=== PATIENT | female | born 1985 | race Caucasian/White ===

== ENCOUNTER 2024-09-07 18:02 | Emergency (ER) | payer MEDICAID, SELFPAY ==
[2024-09-07 18:26] VITALS: BP 170/110; PULSE 94; RESP 18; TEMP 36.6; O2SAT 98; BMI 54.1
--- NOTE | 2024-09-07 18:30 | EKG_ITS ---
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
--- NOTE | 2024-09-07 18:33 | PD.EDRME ---
Rapid Medical Screening Exam RME Arrival date/time: 09/07/24 18:02 39 year old female present to ED for c/o of headache for 1 day I have greeted and performed a focused initial assessment of this patient. A comprehensive ED assessment and evaluation of the patient, analysis of all test results, and completion of the medical decision making process will be conducted by additional ED providers. Chief Complaint: Headache Time Seen by Provider: 09/07/24 18:08 Vital signs: Vital Signs Temperature 97.9 F 09/07/24 18:26 Pulse Rate 94 09/07/24 18:26 Respiratory Rate 18 09/07/24 18:26 Blood Pressure 170/110 H 09/07/24 18:26 Pulse Oximetry (%) 98 09/07/24 18:26 Oxygen Delivery Method Room Air 09/07/24 18:26
[2024-09-07] MEDS: DiphenhydrAMINE ELIX 25 MG/10 ML UDC 12.5 MG PO (18:40)
[2024-09-07] MEDS: SUMAtriptan INJ 6 MG/0.5 ML VIAL SC (18:40)
[2024-09-07 19:27] LABS: HCG,Qualitative Serum Negative
[2024-09-07 19:37] LABS: Basophils # (Auto) 0.1 Thou/mm3 (0.0-0.2); Basophils % (Auto) 1 % (0-2.5); Eosinophils # (Auto) 0.2 Thou/mm3 (0.0-0.5); Eosinophils % (Auto) 2 % (0-10); Hematocrit 39.1 % (36.0-46.0); Hemoglobin 11.9 g/dL (12.0-16.0); Immature Granulocytes % (Auto) 0 % (0-0); Immature Granulocytes Auto 0.04 Thou/mm3 (0.00-0.00); Lymphocytes # (Auto) 3.9 Thou/mm3 (1.0-4.8); Lymphocytes % (Auto) 37 % (10-50); Mean Corpuscular HGB Conc 30.4 g/dl (31.0-37.0); Mean Corpuscular Hemoglobin 24.1 pg (25.0-35.0); Mean Corpuscular Volume 79 fL (80-100); Monocytes # (Auto) 0.7 Thou/mm3 (0.0-0.8); Monocytes % (Auto) 6 % (0-12); Neutrophils # (Auto) 5.8 Thou/mm3 (1.8-7.7); Neutrophils % (Auto) 55 % (37-80); Nucleated Red Blood Cell % 0 /100 WBC (0); Platelet Count 245 Thou/mm3 (140-440); RDW Standard Deviation 42.1 fL (36.4-46.3); Red Blood Count 4.93 Miln/mm3 (4.00-5.20); White Blood Count 10.7 Thou/mm3 (3.6-11.0)
[2024-09-07 19:42] LABS: Alanine Aminotransferase 12 U/L (10-49); Albumin, Serum 4.2 gm/dL (3.5-5.0); Albumin/Globulin Ratio 1.3 (1.2-2.2); Alkaline Phosphatase 118 U/L (46-116); Anion Gap 5 (7-16); Aspartate Amino Transferase 10 U/L (0-34); BUN/Creatinine Ratio 12 Ratio (12-20); Bilirubin,Total 0.5 mg/dL (0.3-1.2); Blood Urea Nitrogen 12 mg/dL (9-23); Calcium 9.5 mg/dL (8.3-10.6); Calcium (Corrected) 9.5 mg/dL (8.5-10.1); Carbon Dioxide 28.4 mMol/L (20.0-31.0); Chloride 101 mMol/L (98-107); Estimated Creatinine Clearance 121.6 mL/min (>60); Globulin 3.2 gm/dL (2.3-3.5); Glucose 164 mg/dL (74-106); Osmolality,Calculated 271 (275-295); Potassium 4.3 mMol/L (3.4-5.1); Sodium 134 mMol/L (136-145); Total Protein 7.4 gm/dL (5.7-8.2); Troponin I < 0.020 ng/mL (0.0-0.045); eGFR > 60 See Note
--- NOTE | 2024-09-07 19:49 | PC.NURSE ---
SEEN LEAVING ER, PT GOT INTO A CAR. NO ANSWER AT ER LOBBY OR OUTSIDE ER AT THIS TIME.
== END 2024-09-07 19:50 | disposition left against medical advice (07) ==
PROVIDERS: Physician Assistant; Emergency Provider Emergency Medicine; PCP Nurse Practitioner Family
DX: R51.9 Headache, unspecified (principal); Z53.21 Procedure and treatment not carried out due to patient leaving prior to being seen by health care provider
CPT/HCPCS: 36415; 80053; 84484; 84703; 85025; 93005; 96372; 99281; J3030; A9270

== ENCOUNTER 2025-05-05 07:47 | Emergency (ER) | payer MEDICAID, SELFPAY ==
[2025-05-05 07:47] VITALS: BMI 43.8
[2025-05-05 07:58] VITALS: BP 130/104; PULSE 108; RESP 19; TEMP 36.4; O2SAT 98
--- NOTE | 2025-05-05 08:10 | EDNOTE_ITS ---
<Statement entered by Kandis Ley MD - 05/05/25 17:35> As co-signing physician, I was present and available for consult prn. I concur with the plan and care as documented by the midlevel provider. ED Dental RME/HPI General Chief complaint: Dental/Oral/Throat Stated complaint: [place] tooth area pain Time Seen by Provider: 05/05/25 07:50 Source: patient Arrival date/time: 05/05/25 07:47 40-year-old female with no medical history presents to the emergency room with a chief complaint of pain and tenderness to the lower left molars x 2 days Mode of arrival: ambulatory Limitations: no limitations Related Data Previous Rx's ?Medication ?Instructions ?Recorded ranitidine HCl 300 mg tablet 300 mg PO QPM #30 tabs (Zantac) hydrochlorothiazide 12.5 mg tablet 12.5 mg PO QDAY #30 tabs 06/02/23 lisinopril 5 mg tablet 5 mg PO QDAY #30 tabs clindamycin HCl 300 mg capsule 300 mg PO TID 7 days #2 1 caps 05/05/25 hydrocodone 5 mg-acetaminophen 325 1 tab PO BID PRN pa in #6 tabs 05/05/25 mg tablet Allergies Allergy/AdvReac Type Severity Reaction Status Date / Time No Known Allergies Allergy Verified 09/07/24 18:03 Review of Systems Review of Systems Systems Reviewed: All systems reviewed, normal except as documented Constitutional Constitutional: Reports system reviewed and no additional complaints, except as documented, Denies fatigue, Denies fever(s), Denies headache(s) and Denies weakness Eyes Eyes: Reports system reviewed and no additional complaints, except as documented, Denies blurry vision and Denies change in vision ENT Ears, Nose, Mouth, and Throat: Reports system reviewed and no additional complaints, except as documented, Reports dental pain, Denies otalgia, Denies headache(s), Denies nasal congestion, Denies throat swelling and Denies vertigo Cardiovascular Cardiovascular: Reports system reviewed and no additional complaints, except as documented, Denies chest pain, Denies dyspnea and Denies dyspnea on exertion Respiratory Respiratory: Reports system reviewed and no additional complaints, except as documented, Denies chest congestion, Denies cough, Denies dyspnea, Denies dyspnea on exertion and Denies wheezing Gastrointestinal Gastrointestinal: Reports system reviewed and no additional complaints, except as documented, Denies abdominal pain, Denies cramping, Denies nausea and Denies vomiting Genitourinary Genitourinary: Reports system reviewed and no additional complaints, except as documented Musculoskeletal Musculoskeletal: Reports system reviewed and no additional complaints, except as documented and Denies back pain Integumentary/Breasts Skin/Breast: Reports system reviewed and no additional complaints, except as documented and Denies wounds Neurologic Neurologic: Reports system reviewed and no additional complaints, except as documented, Denies confusion, Denies headache(s), Denies lack of coordination, Denies vertigo and Denies weakness Psychiatric Psychiatric: Reports system reviewed and no additional complaints, except as documented, Denies anxiety, Denies confusion, Denies depression, Denies paranoia, Denies suicidal ideation and Denies tactile hallucinations Endocrine Endocrine: Reports system reviewed and no additional complaints, except as documented and Denies fatigue Hematologic/Lymphatic Hematologic/Lymphatic: Reports system reviewed and no additional complaints, except as documented and Denies lymphadenopathy Allergic/Immunologic Allergic/Immunologic: Reports system reviewed and no additional complaints, except as documented, Denies throat swelling, Denies urticaria and Denies wheezing Past Medical History Past Medical History CARDIAC: Positive Heart Murmur (LEAKING HEART VALVES); Negative Congestive Heart Failure RESPIRATORY: Negative Chronic Obstructive Pulmonary Disease (COPD) GENITOURINARY: Negative Renal Disease ENDOCRINE: Negative Diabetes Mellitus Type 1 or Diabetes Mellitus Type 2 Surgical History SURGICAL: Positive Section (x2) Social History SMOKING STATUS: Former smoker ED Exam General Limitations: Present no limitations General appearance: Present alert and in no apparent distress Head Head exam: Present atraumatic Eye Eye exam: Present normal appearance, PERRL and EOMI ENT ENT exam: Present normal exam, normal oropharynx and mucous membranes moist Expanded ENT Exam Teeth exam: Present fractured tooth # and dental tenderness # Teeth numbered: 2 1. Dental Tenderness Neck Neck exam: Present normal inspection, full ROM and trachea midline Chest Chest inspection: Present normal inspection and symmetric chest wall rise Respiratory Respiratory exam: Present normal lung sounds bilaterally Cardiovascular Cardiovascular exam: Present regular rate, normal rhythm and normal heart sounds Abdominal Exam Abdominal exam: Present soft and normal bowel sounds Extremities Exam Extremities exam: Present normal inspection and full ROM Back Exam Back exam: Present normal inspection and full ROM Neurological Exam Neurological exam: Present alert, oriented X3 and CN II-XII intact Psychiatric Psychiatric exam: Present normal affect and normal mood Skin Skin exam: Present warm, dry, intact and normal color Course Quality Measures none Orders Category Date Time Status Clindamycin Vial [Cleocin vial] Med 05/05/25 08:07 Discontinued 600 mg IM X1 ONE Ketorolac Inj [Toradol Inj] Med 05/05/25 08:07 Discontinued 60 mg IM X1 ONE Vital Signs Vital signs: Vital Signs Temperature 97.6 F 05/05/25 07:58 Pulse Rate 108 H 05/05/25 07:58 Respiratory Rate 19 05/05/25 07:58 Blood Pressure 130/104 H 05/05/25 07:58 Pulse Oximetry (%) 98 05/05/25 07:58 Oxygen Delivery Method Room Air 05/05/25 07:58 Dental / Oral MDM Narrative MDM Narrative:: 40-year-old female with no medical history presents to the emergency room with a chief complaint of pain and tenderness to the lower left molars x 2 days Patient is hemodynamically stable and in no apparent distress Physical examination shows some left lower dental pain x 2 days. The patient's dental pain is to tooth #18 and 19 on the left lower molar side. There is some dental fractures and dental tenderness with palpation. There is no evidence of any gingivitis. Pain medication and antibiotics were given to the patient Patient was discharged and educated to follow-up with primary care provider in the next 24 to 48 hours and return to the emergency room for any evidence of worsening signs or symptoms Patient data External records reviewed:: [facility] previous records Clinical information provided by:: patient Social determinants that could affect healthcare access:: none Patient has the following chronic illnesses:: No chronic illness How is presenting disease/condition affected by chronic disease/condition?: no chronic disease Evaluation data The following diagnostics were reviewed and interpreted by me:: lab results and radiology exam(s) Lab and/or radiology exams considered but not ordered:: Labs and radiology exams considered and ordered Interpretation Summary: N/A Medications / Prescriptions Medications or Prescriptions considered but not ordered:: Medication given Medication administrations:: Medication Administration History Discontinued Medications Clindamycin Phosphate (Clindamycin Phos Inj 150 Mg/Ml Vial 6 Ml) 600 mg IM X1 ONE Stop: 05/05/25 08:08 Last Admin: 05/05/25 08:13 Dose: 600 mg Documented By: MARKELL Ketorolac Tromethamine (Ketorolac Inj 60 Mg/2 Ml Vial) 60 mg IM X1 ONE Stop: 05/05/25 08:08 Last Admin: 05/05/25 08:13 Dose: 60 mg Documented By: VG Medication given Consultations Consultation(s) initiated? (list below): No Diagnosis Dental Differential Diagnosis: dental caries, toothache and dental abscess Most likely diagnosis given after review of the tests above:: Toothache Admission Indicated Admission indicated?: not indicated Admission Request Was there a request for admission?: No Disposition Plan Disposition Plan: Discharge Discharge Attestation Discharge Attestation: The patient and all family members were given an opportunity to ask questions and understood the discharge instructions. Discharge instructions specifically effects, indications for sooner follow up or return to the emergency department, and the expected course of current diagnosis. Patient condition: Stable Discharge Plan Plan Patient Disposition: HOME (Self Care) Discharge Disposition comment: Stable Prescriptions/Referrals Prescriptions/Med Rec: New clindamycin HCl 300 mg capsule 300 mg PO TID 7 Days Qty: 21 0RF hydrocodone-acetaminophen 5-325 mg tablet 1 tab PO BID MDD 10mg PRN (Reason: pain) Qty: 6 0RF No Action ranitidine HCl [Zantac] 300 mg tablet 300 mg PO QPM Qty: 30 0RF Rx Instructions: administer after meal hydrochlorothiazide 12.5 mg tablet 12.5 mg PO QDAY Qty: 30 0RF lisinopril 5 mg tablet 5 mg PO QDAY Qty: 30 0RF Problem List Clinical Impression: Pain, dental Patient/Caregiver Discharge Instructions Education Materials: ED Dental Pain Additional Instructions: Please follow-up with your dentist in the next 24 to 48 hours Antibiotics and pain medication was sent to your pharmacy please pick it up and take it as indicated For any evidence of worsening signs or symptoms return to the emergency room immediately Print Language: Mosotho Stand Alone Forms: Elizabeth Award Info., Patient Portal Info Letter PA/[employer]ET [employer]OTE[employer] PROFESSIONAL Supervising Physician PA/MCKAYLA Supervising Physician: Dr. LEY
[2025-05-05] MEDS: CLINDAMYCIN PHOS INJ 150 MG/ML VIAL 6 ML 600 MG IM (08:13)
[2025-05-05] MEDS: KETOROLAC INJ 60 MG/2 ML VIAL IM (08:13)
== END 2025-05-05 08:32 | disposition home or self-care (01) ==
LOC: SERX 08:13
PROVIDERS: Emergency Provider Emergency Medicine
DX: K08.89 Other specified disorders of teeth and supporting structures (principal)
CPT/HCPCS: 96372; 99283; J0736; J1885